=== PATIENT | female | born 1990 | race African-American/Black ===

== ENCOUNTER 2017-07-29 11:04 | Emergency (ER) | payer OTHER ==
[2017-07-29 11:15] VITALS: BP 118/75
[2017-07-29] MEDS ORDERED: HYDROCODONE/ACETAMINOPHEN 5-325 MG TABLET PO ONE (11:31)
--- NOTE | 2017-07-29 11:38 | ER Document Report ---
HPI - HPI Patient complains to provider of: Toothache Onset: Yesterday Onset/Duration: Gradual Quality of pain: Achy Severity: Moderate Pain Level: 4 Context: Patient complains of right lower toothache since yesterday. Got worse this morning, and patient states this caused her to become anxious and her chest began to hurt. Denies chest pain or difficulty breathing at this time. Patient states she has a dental appointment on Sunday. Associated Symptoms: Chest pain, Shortness of breath Exacerbated by: Other - dental pain Relieved by: Denies Similar symptoms previously: Yes Recently seen / treated by doctor: No - ROS ROS below otherwise negative: Yes Systems Reviewed and Negative: Yes All other systems reviewed and negative - CONSTITUTIONAL Constitutional: DENIES: Fever - EENT EENT: DENIES: Congestion Notes: Right lower toothache - NEURO Neurology: DENIES: Headache - CARDIOVASCULAR Cardiovascular: REPORTS: Chest pain Notes: Patient denies chest pain or difficulty breathing at this time. - RESPIRATORY Respiratory: REPORTS: Trouble Breathing. DENIES: Coughing - GASTROINTESTINAL Gastrointestinal: DENIES: Abdominal Pain - REPRODUCTIVE Reproductive: DENIES: : - MUSCULOSKELETAL Musculoskeletal: DENIES: Extremity pain - DERM Skin Color: Normal Skin Problems: None Past Medical History - General Information source: Patient - Social History Smoking Status: Former Smoker Frequency of alcohol use: None Drug Abuse: None Lives with: Family Family History: Reviewed & Not Pertinent Neurological Medical History: Reports: Hx Seizures - Pediatric Surgical Hx: Negative Vertical Provider Document - CONSTITUTIONAL Agree With Documented VS: Yes Exam Limitations: No Limitations General Appearance: WD/WN, No Apparent Distress - INFECTION CONTROL TRAVEL OUTSIDE OF THE [place] IN LAST 30 DAYS: No - HEENT HEENT: Atraumatic, Normal ENT Exam, Normocephalic Mouth Diagram: 1 - decay, no gum swelling 2 - decay, no gum swelling - NECK Neck: Normal Inspection, Supple - RESPIRATORY Respiratory: Breath Sounds Normal, No Respiratory Distress, Chest Non-Tender O2 Sat by Pulse Oximetry: 98 - CARDIOVASCULAR Cardiovascular: Regular Rate, Regular Rhythm - GI/ABDOMEN Gastrointestinal: Abdomen Soft - MUSCULOSKELETAL/EXTREMETIES Musculoskeletal/Extremeties: JUWAN [place] - NEURO Level of Consciousness: Awake, Alert, Appropriate - DERM Integumentary: Warm, Dry Course - Vital Signs Vital signs: Temp Pulse Resp BP Pulse Ox 98.5 F 68 16 118/75 98 07/29/17 11:09 07/29/17 11:09 07/29/17 11:09 07/29/17 11:09 07/29/17 11:09 Discharge - Discharge Clinical Impression: Pain due to dental caries Condition: Good Disposition: HOME, SELF-CARE Instructions: Penicillin V K ([facility]), Toothache ([facility]) Additional Instructions: Take all antibiotics as prescribed Ibuprofen every 8 hours for pain, tramadol as needed. You must follow-up with a dentist for further evaluation of dental problems. Return as needed Prescriptions: Ibuprofen 800 mg PO TID PRN #20 tablet PRN Reason: Penicillin V Potassium [Penicillin Vk 250 mg Tablet] 250 mg PO Q6 #40 tablet Tramadol HCl 50 mg PO PRN PRN #10 tablet PRN Reason:
== END 2017-07-29 11:45 | disposition home or self-care (01) ==
LOC: ER 11:04
DX: K02.9 Dental caries, unspecified (principal); K08.89 Other specified disorders of teeth and supporting structures; Z87.891 Personal history of nicotine dependence
CPT/HCPCS: 99282

== ENCOUNTER 2020-11-16 17:40 | Emergency (ER) | payer OTHER | END 2020-11-16 19:05 | disposition left against medical advice (07) | LOC: ER 17:40 | DX: Z53.21 Procedure and treatment not carried out due to patient leaving prior to being seen by health care provider (principal) ==